=== PATIENT | male | born 1975 | race African-American/Black ===

== ENCOUNTER 2016-07-27 16:54 | Inpatient (IN) | payer OTHER ==
[~2016-07-27 16:54] MED LIST: TAMS5CAP PO
[2016-07-27] MEDS ORDERED: ceFAZolin 2 GM PREMIX 50 ML ONE (17:00)
[2016-07-27 17:10] VITALS: O2SAT 98
[2016-07-27 17:18] LABS: I-STAT POTASSIUM 3.4 MMOL/L (3.5-4.9)
[2016-07-27] MEDS ORDERED: ceFAZolin 2 GM PREMIX 50 ML IV STA (17:25)
[2016-07-27 17:26] LABS: APTT (PATIENT) 23.7 SEC (24.3-30.1); PROTHROMBIN TIME - PATIENT 11.5 SEC (9.8-11.6)
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
[2016-07-27] MEDS ORDERED: LIDOCAINE 1%/EPINEPHrine 1:100,000 SOLN 30 ML VIAL ONE (17:34)
[2016-07-27 17:35] LABS: AUTOMATED NEUTROPHIL # 3.5 TH/MM3 (1.8-7.7); BASOPHIL # 0.1 TH/MM3 (0-0.2); BASOPHIL % 1.2 % (0.0-2.0); EOSINOPHIL # 0.3 TH/MM3 (0-0.4); EOSINOPHIL % 4.1 % (0.0-4.0); HEMATOCRIT 37.5 % (39.0-51.0); HEMO FLAGS DIFF FINAL; LYMPH % 41.3 % (9.0-44.0); LYMPHOCYTE # 3.1 TH/MM3 (1.0-4.8); MEAN CELL VOLUME 84.9 FL (80.0-100.0); MEAN CORPUSCULAR HEMOGLOBIN 29.3 PG (27.0-34.0); MEAN CORPUSCULAR HGB CONC 34.5 % (32.0-36.0); MONO % 7.1 % (0.0-8.0); NEUT % 46.3 % (16.0-70.0); PLATELET COUNT 268 TH/MM3 (150-450); RED BLOOD COUNT 4.41 MIL/MM3 (4.50-5.90); RED CELL DISTRIBUTION WIDTH 14.4 % (11.6-17.2); WHITE BLOOD COUNT 7.6 TH/MM3 (4.0-11.0)
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
[2016-07-27] MEDS ORDERED: SODIUM CHLOR 0.9% 1000 ML INJ 1,000 ML IV SCH (17:51)
[2016-07-27] MEDS ORDERED: NALOXONE HCL 0.4 MG/ML AMP IV PRN (18:00)
[2016-07-27] MEDS ORDERED: IOHEXOL 350 MG/ML 10 ML VIAL (for RAD DIAG) IV ONE (18:00)
[2016-07-27] MEDS ORDERED: Post-op Orders (for Pharmacy) MISC XX ONE (18:00)
[2016-07-27] MEDS ORDERED: ONDANSETRON HCL 4 MG/2 ML VIAL IV PRN (18:00)
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
[2016-07-27 20:00] VITALS: BP 154/87; PULSE 90; RESP 12; TEMP 99; O2SAT 100
[2016-07-27] MEDS: hydrALAZINE HCL 20 MG/ML VIAL IV PUSH SCH (20:02)
[2016-07-27 20:08] VITALS: O2SAT 100
[2016-07-27 20:21] LABS: AMPHETAMINE, URINE NEG (NEG); BARBITURATES, URINE NEG (NEG); COCAINE, URINE NEG (NEG)
[2016-07-27] MEDS: SODIUM CHLORIDE 0.9% FLUSH 5 ML FLUSH IVF SCH (21:00)
[2016-07-27] MEDS: METOPROLOL TARTRATE 5 MG/5 ML VIAL IV PUSH SCH (21:28)
[2016-07-27] MEDS: levETIRAcetam INJ 500 MG in SODIUM CHLORIDE 0.9% INJ 100 ML IV SCH (21:28)
[2016-07-27 22:00] VITALS: BP 144/84; PULSE 106; RESP 13; TEMP 99; O2SAT 96
[2016-07-27] MEDS: ACETAMINOPHEN 325 MG TAB PO PRN (23:45)
[2016-07-28] VITALS (12 sets, daily range): BP systolic 98–138; BP diastolic 53–87; PULSE 70–113; RESP 14–26; TEMP 98.1–98.7; O2SAT 97–99
[2016-07-28] MEDS: hydrALAZINE HCL 20 MG/ML VIAL IV PUSH SCH (02:05)
[2016-07-28] MEDS: METOPROLOL TARTRATE 5 MG/5 ML VIAL IV PUSH SCH ×4 (03:00→20:55)
[2016-07-28 04:51] LABS: AUTOMATED NEUTROPHIL # 10.5 TH/MM3 (1.8-7.7); BASOPHIL % 0.3 % (0.0-2.0); EOSINOPHIL % 0.1 % (0.0-4.0); HEMO FLAGS DIFF FINAL; LYMPHOCYTE # 1.9 TH/MM3 (1.0-4.8); MEAN CELL VOLUME 86.1 FL (80.0-100.0); MEAN CORPUSCULAR HEMOGLOBIN 28.6 PG (27.0-34.0); MEAN CORPUSCULAR HGB CONC 33.3 % (32.0-36.0); MONO % 7.9 % (0.0-8.0); NEUT % 77.7 % (16.0-70.0); PLATELET COUNT 300 TH/MM3 (150-450); RED BLOOD COUNT 4.42 MIL/MM3 (4.50-5.90); RED CELL DISTRIBUTION WIDTH 13.9 % (11.6-17.2); WHITE BLOOD COUNT 13.5 TH/MM3 (4.0-11.0)
[2016-07-28 05:18] LABS: BICARBONATE 25.3 MEQ/L (21.0-32.0); POTASSIUM 3.4 MEQ/L (3.5-5.1)
[2016-07-28 05:20] LABS: INDIRECT BILIRUBIN 0.2 MG/DL (0.0-0.8); TOTAL BILIRUBIN ADULT 0.3 MG/DL (0.2-1.0)
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
[2016-07-28] MEDS: DOCUSATE SODIUM 50 MG/SENNA 8.6 MG TAB PO SCH ×2 (08:11→20:55)
[2016-07-28] MEDS: levETIRAcetam INJ 500 MG in SODIUM CHLORIDE 0.9% INJ 100 ML IV SCH ×2 (08:11→20:55)
[2016-07-28] MEDS: ACETAMINOPHEN 325 MG TAB PO PRN ×2 (08:12→15:54)
[2016-07-28] MEDS: SODIUM CHLORIDE 0.9% FLUSH 5 ML FLUSH IVF SCH ×2 (09:00→20:56)
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
[2016-07-28] MEDS: BACITRACIN TOP OINT 15 GM TUBE TOP SCH ×2 (15:54→20:56)
[2016-07-28] MEDS: PANTOPRAZOLE SODIUM 40 MG VIAL IV SCH (18:00)
[2016-07-28] MEDS ORDERED: EPINEPHrine HCL (1:10,000) 1 MG/10 ML SYRINGE ONE (19:25)
[2016-07-28] MEDS ORDERED: LIDOCAINE HCL 2% 100 MG/5 ML SYRINGE ONE (19:25)
[2016-07-28] MEDS ORDERED: ATROPINE SULFATE 1 MG/10 ML SYRINGE ONE (19:25)
[2016-07-28] MEDS ORDERED: IODIXANOL 320 MG/ML 10 ML VIAL (for Rad CT) IV ONE (19:57)
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
[2016-07-28] MEDS: MAGNESIUM HYDROXIDE SUSP 30 ML CUP PO SCH (20:55)
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
[2016-07-28] MEDS: oxyCODONE/ACETAMINOPHEN 5 MG/325 MG TAB PO PRN (23:16)
[2016-07-29] VITALS (10 sets, daily range): BP systolic 100–137; BP diastolic 58–89; PULSE 61–70; RESP 17–22; TEMP 97.8–98.6; O2SAT 96–98
[2016-07-29] MEDS: METOPROLOL TARTRATE 5 MG/5 ML VIAL IV PUSH SCH ×2 (03:00→09:00)
[2016-07-29] MEDS: oxyCODONE/ACETAMINOPHEN 5 MG/325 MG TAB PO PRN ×4 (03:12→19:58)
[2016-07-29 04:44] LABS: AUTOMATED NEUTROPHIL # 6.1 TH/MM3 (1.8-7.7); BASOPHIL % 0.2 % (0.0-2.0); EOSINOPHIL # 0.2 TH/MM3 (0-0.4); EOSINOPHIL % 2.1 % (0.0-4.0); HEMATOCRIT 38.3 % (39.0-51.0); HEMO FLAGS DIFF FINAL; LYMPH % 27.6 % (9.0-44.0); LYMPHOCYTE # 2.8 TH/MM3 (1.0-4.8); MEAN CELL VOLUME 86.5 FL (80.0-100.0); MEAN CORPUSCULAR HEMOGLOBIN 28.8 PG (27.0-34.0); MEAN CORPUSCULAR HGB CONC 33.3 % (32.0-36.0); MONO % 8.6 % (0.0-8.0); NEUT % 61.5 % (16.0-70.0); PLATELET COUNT 280 TH/MM3 (150-450); RED BLOOD COUNT 4.43 MIL/MM3 (4.50-5.90); RED CELL DISTRIBUTION WIDTH 14.4 % (11.6-17.2)
[2016-07-29 05:18] LABS: ALT (GPT) 28 U/L (12-78); ANION GAP 6 MEQ/L (5-15); AST (GOT) 16 U/L (15-37); BICARBONATE 31.9 MEQ/L (21.0-32.0); BLOOD UREA NITROGEN 15 MG/DL (7-18); CHLORIDE 104 MEQ/L (98-107); GLOMERULAR FILTRATION RATE 65 ML/MIN (>89); MAGNESIUM 2.1 MG/DL (1.5-2.5); POTASSIUM 3.5 MEQ/L (3.5-5.1); SODIUM (NA) 142 MEQ/L (136-145)
[2016-07-29 05:20] LABS: ALKALINE PHOSPHATASE 62 U/L (45-117); TOTAL BILIRUBIN ADULT 0.5 MG/DL (0.2-1.0)
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
[2016-07-29] MEDS: levETIRAcetam INJ 500 MG in SODIUM CHLORIDE 0.9% INJ 100 ML IV SCH ×2 (08:22→21:55)
[2016-07-29] MEDS: DOCUSATE SODIUM 50 MG/SENNA 8.6 MG TAB PO SCH ×2 (08:22→21:54)
[2016-07-29] MEDS: SODIUM CHLORIDE 0.9% FLUSH 5 ML FLUSH IVF SCH ×2 (09:00→21:55)
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
[2016-07-29] MEDS: ACETAMINOPHEN 325 MG TAB PO PRN (18:36)
[2016-07-29] MEDS: PANTOPRAZOLE SODIUM 40 MG VIAL IV SCH (18:57)
[2016-07-29] MEDS: BACITRACIN TOP OINT 15 GM TUBE TOP SCH (21:00)
[2016-07-29] MEDS: MAGNESIUM HYDROXIDE SUSP 30 ML CUP PO SCH (21:54)
--- NOTE | 2016-07-29 22:53 | RADRPT ---
EXAM DATE/TIME: 07/29/2016 22:23 [place] COMPARISON: CTA BRAIN W 3D RECON, July 28, 2016, 19:49. CT BRAIN W & W/O CONTRAST, July 28, 2016, 19:44. INDICATIONS : Head injury, headache, follow up intracranial bleed. IV CONTRAST: 80 cc Omnipaque 350 (iohexol) IV RADIATION DOSE: 56.35 CTDIvol (mGy) MEDICAL HISTORY : Hypertension. SURGICAL HISTORY : None. ENCOUNTER: Subsequent ACUITY: 2 days PAIN SCALE: 7/10 LOCATION: cranial TECHNIQUE: Multiple contiguous axial images were obtained of the head. Using automated exposure control and adj ustment of the mA and/or kV according to patient size, radiation dose was kept as low as reasonably a chievable to obtain optimal diagnostic quality images. FINDINGS: The extra-axial blood along the left margin of the brainstem again noted, unchanged to slightly decre ased. This is approximately 3.5 mm in maximal thickness. No significant mass effect. No midline shift . No no hemorrhage. No mass lesion. No evidence of an acute ischemic event. There is no abnormal enhancement. No perceptible aneurysm. CONCLUSION: Small subarachnoid blood at the base of the brain unchanged to slightly smaller in the interim. No ne w blood. No mass effect or midline shift. Otto De Leon MD on July 29, 2016 at 22:48 Board Certified Radiologist. This report was verified electronically.
[2016-07-30 00:50] VITALS: BP 144/94; PULSE 58; RESP 18; TEMP 97.6; O2SAT 96
[2016-07-30] MEDS: oxyCODONE/ACETAMINOPHEN 5 MG/325 MG TAB PO PRN ×6 (01:14→20:50)
[2016-07-30 05:54] VITALS: BP 142/99; PULSE 60; RESP 18; TEMP 97.6; O2SAT 97
[2016-07-30] MEDS ORDERED: LACTULOSE SYRUP 20 GM/30 ML CUP PO ONE (08:15)
[2016-07-30 08:19] VITALS: BP 124/84; PULSE 60; RESP 18; TEMP 97; O2SAT 97
[2016-07-30 08:22] LABS: BICARBONATE 30.1 MEQ/L (21.0-32.0); POTASSIUM 3.4 MEQ/L (3.5-5.1)
[2016-07-30 08:40] LABS: MEAN CELL VOLUME 87.6 FL (80.0-100.0); MEAN CORPUSCULAR HEMOGLOBIN 28.9 PG (27.0-34.0); PLATELET COUNT 306 TH/MM3 (150-450); RED BLOOD COUNT 4.57 MIL/MM3 (4.50-5.90); REVIEW FLAG FINAL; WHITE BLOOD COUNT 8.4 TH/MM3 (4.0-11.0)
[2016-07-30] MEDS: BACITRACIN TOP OINT 15 GM TUBE TOP SCH ×2 (09:00→20:53)
[2016-07-30] MEDS: DOCUSATE SODIUM 50 MG/SENNA 8.6 MG TAB PO SCH ×2 (09:04→20:52)
[2016-07-30] MEDS: LISINOPRIL 20 MG TAB PO SCH (09:04)
[2016-07-30] MEDS: FAMOTIDINE 20 MG TAB PO SCH ×2 (09:04→20:52)
[2016-07-30] MEDS: levETIRAcetam INJ 500 MG in SODIUM CHLORIDE 0.9% INJ 100 ML IV SCH ×2 (09:05→20:50)
[2016-07-30] MEDS: SODIUM CHLORIDE 0.9% FLUSH 5 ML FLUSH IVF SCH ×2 (09:11→20:50)
[2016-07-30 12:26] VITALS: BP 117/85; PULSE 68; RESP 19; TEMP 97.9; O2SAT 98
[2016-07-30 16:17] VITALS: BP 118/73; PULSE 60; RESP 19; TEMP 97.2; O2SAT 99
--- NOTE | 2016-07-30 16:19 | HHI.PR ---
Subjective Subjective Notes Complains of relentless HUFFMAN Denies N/V Objective Vitals/I&O Vital Signs Date Time Temp Pulse Resp B/P Pulse Ox O2 Delivery O2 Flow Rate FiO2 07/30/16 13:57 19 07/30/16 12:26 97.9 68 117/85 98 07/30/16 09:07 Room Air 07/27/16 20:08 3.00 Labs Laboratory Tests Test 07/30/16 07:23 White Blood Count 8.4 Red Blood Count 4.57 Hemoglobin 13.2 Hematocrit 40.0 Mean Corpuscular Volume 87.6 Mean Corpuscular Hemoglobin 28.9 Mean Corpuscular Hemoglobin 33.0 Concent Red Cell Distribution Width 14.0 Platelet Count 306 Mean Platelet Volume 7.3 Sodium Level 141 Potassium Level 3.4 Chloride Level 103 Carbon Dioxide Level 30.1 Anion Gap 8 Blood Urea Nitrogen 14 Creatinine 1.43 Estimat Glomerular Filtration 66 Rate Random Glucose 95 Calcium Level 8.6 Radiology Last Impressions Head CT 07/29/16 0000 Signed Impressions: Service Date/Time: Friday, July 29, 2016 22:23 - CONCLUSION: Small subarachnoid blood at the base of the brain unchanged to slightly smaller in the interim. No new blood. No mass effect or midline shift. Otto De Leon MD Head CTA 07/28/16 0600 Signed Impressions: Service Date/Time: Thursday, July 28, 2016 19:49 - CONCLUSION: 1. Mild vasospasm. No discrete aneurysm. No focal vessel truncation. Marcos Nance MD Pelvis X-Ray 07/27/161705 Signed Impressions: Service Date/Time: Wednesday, July 27, 2016 16:51 - CONCLUSION: Unremarkable examination of the pelvis. Marcos Nance MD Chest X-Ray 07/27/161705 Signed Impressions: Service Date/Time: Wednesday, July 27, 2016 16:51 - CONCLUSION: No acute disease. Marcos Nance MD Chest CT 07/27/161705 Signed Impressions: Service Date/Time: Wednesday, July 27, 2016 17:17 - CONCLUSION: 1. No acute traumatic injury identified within the thorax. Minimal dependent atelectasis in the lungs. See abdomen CT for findings below diaphragm. Marcos Nance MD Cervical Spine CT 07/27/161705 Signed Impressions: Service Date/Time: Wednesday, July 27, 2016 17:09 - CONCLUSION: 1. No acute findings. Marcos Nance MD Abdomen/Pelvis CT 07/27/16 1706 Signed Impressions: Service Date/Time: Wednesday, July 27, 2016 17:19 - CONCLUSION: 1. No acute traumatic injury identified within the abdomen and pelvis. Mild right-sided hydronephrosis possibly due to reflux. Mild bladder wall thickening. Marcos Nance MD Narrative Exam GENERAL: 40 year old well-nourished, well developed male sitting OOB in chair. SKIN: Warm and dry. ENT: No nasal bleeding or discharge. Mucous membranes pink and moist. NECK: Trachea midline. No JVD. CARDIOVASCULAR: Regular rate and rhythm. RESPIRATORY: No accessory muscle use. Lungs clear to auscultation. Breath sounds equal bilaterally. GASTROINTESTINAL: Abdomen soft, non-tender, nondistended. + BS. MUSCULOSKELETAL: Extremities without cyanosis, or edema. No obvious deformities. NEUROLOGICAL: Awake and alert. Normal speech. A/P Assessment and Plan INJURIES: SAH along the LEFT brainstem Left parietal lac (3 sutures, 16 aide) Aspiration PMHx: HTN Diet: Regular, tolerating Pulm: IS, encouraged patient use. Pain: Tylenol. Percocet. Added IV Morphine for better pain control. Activity: OOB. PT and OT evaluating. Got OOB with minimal assist today. GI: Pepcid Bowel: Angeli-Colace. MOM. No BM yet. Lactulose x1. DVT: SCD's Continue Keppra. No seizure activity noted. NS following. Labs reviewed. 40mEq K Cl ordered for K+ of 3.4. Continue to monitor creatinine. PARAG vs CKD from uncontrolled HTN. Discontinue Nair catheter Plan of care discussed with patient at bedside. The exam, history, and the medical decision-making described in the above note were completed with the assistance of the mid-level provider. I reviewed and agree with the findings presented. I attest that I had a [id number] encounter with the patient on the same day, and personally performed and documented my assessment and findings in the medical record. Joycelyn Baker Jul 30, 2016 16:19 Giorgio Mccallum MD Aug 13, 2016 20:35
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
[2016-07-30] MEDS ORDERED: POTASSIUM CHLORIDE 10 MEQ CONTROLLED RELEASE TAB PO ONE (16:30)
[2016-07-30 20:00] VITALS: BP 136/81; PULSE 66; RESP 17; TEMP 97.9; O2SAT 98
[2016-07-30] MEDS: TAMSULOSIN HCL 0.4 MG CAP PO SCH (20:51)
[2016-07-30] MEDS: MUPIROCIN 2% OINT 1 APPLIC/GM SYR EACH NARE SCH (20:52)
[2016-07-30] MEDS: MAGNESIUM HYDROXIDE SUSP 30 ML CUP PO SCH (20:52)
[2016-07-30] MEDS: MORPHINE SULFATE 4 MG/ML INJ IV PUSH PRN (22:37)
[2016-07-31 00:30] VITALS: BP 135/77; PULSE 68; RESP 18; TEMP 98; O2SAT 98
[2016-07-31] MEDS: oxyCODONE/ACETAMINOPHEN 5 MG/325 MG TAB PO PRN ×4 (02:54→23:47)
[2016-07-31 04:00] VITALS: BP 116/68; PULSE 65; RESP 19; TEMP 97.2; O2SAT 98
[2016-07-31] MEDS: SODIUM CHLORIDE 0.9% FLUSH 5 ML FLUSH IVF PRN (05:56)
[2016-07-31] MEDS: MORPHINE SULFATE 4 MG/ML INJ IV PUSH PRN ×3 (05:56→20:20)
[2016-07-31 08:00] VITALS: BP 119/74; PULSE 71; RESP 18; TEMP 97.6; O2SAT 97
[2016-07-31] MEDS: LISINOPRIL 20 MG TAB PO SCH (09:07)
[2016-07-31] MEDS: levETIRAcetam INJ 500 MG in SODIUM CHLORIDE 0.9% INJ 100 ML IV SCH ×2 (09:07→20:21)
[2016-07-31] MEDS: DOCUSATE SODIUM 50 MG/SENNA 8.6 MG TAB PO SCH ×2 (09:07→20:22)
[2016-07-31] MEDS: SODIUM CHLORIDE 0.9% FLUSH 5 ML FLUSH IVF SCH ×2 (09:07→21:00)
[2016-07-31] MEDS: MUPIROCIN 2% OINT 1 APPLIC/GM SYR EACH NARE SCH ×2 (09:07→20:22)
[2016-07-31] MEDS: FAMOTIDINE 20 MG TAB PO SCH ×2 (09:07→20:22)
[2016-07-31] MEDS: BACITRACIN TOP OINT 15 GM TUBE TOP SCH ×2 (09:08→20:20)
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
[2016-07-31 12:10] VITALS: BP 132/85; PULSE 85; RESP 19; TEMP 97; O2SAT 98
[2016-07-31] MEDS ORDERED: SUMAtriptan SUCCINATE 25 MG TAB PO PRN (12:45)
--- NOTE | 2016-07-31 16:09 | HHI.PR ---
Subjective Subjective Notes Still with complaints of HUFFMAN, relieved by Morphine Complains of photophobia Objective Vitals/I&O Vital Signs Date Time Temp Pulse Resp B/P Pulse Ox O2 Delivery O2 Flow Rate FiO2 07/31/16 14:08 18 07/31/16 12:10 97.0 85 132/85 98 07/30/16 09:07 Room Air 07/27/16 20:08 3.00 Radiology Last Impressions Head CT 07/29/16 0000 Signed Impressions: Service Date/Time: Friday, July 29, 2016 22:23 - CONCLUSION: Small subarachnoid blood at the base of the brain unchanged to slightly smaller in the interim. No new blood. No mass effect or midline shift. Otto De Leon MD Head CTA 07/28/16 0600 Signed Impressions: Service Date/Time: Thursday, July 28, 2016 19:49 - CONCLUSION: 1. Mild vasospasm. No discrete aneurysm. No focal vessel truncation. Marcos Nance MD Pelvis X-Ray 07/27/161705 Signed Impressions: Service Date/Time: Wednesday, July 27, 2016 16:51 - CONCLUSION: Unremarkable examination of the pelvis. Marcos Nance MD Chest X-Ray 07/27/161705 Signed Impressions: Service Date/Time: Wednesday, July 27, 2016 16:51 - CONCLUSION: No acute disease. Marcos Nance MD Chest CT 07/27/161705 Signed Impressions: Service Date/Time: Wednesday, July 27, 2016 17:17 - CONCLUSION: 1. No acute traumatic injury identified within the thorax. Minimal dependent atelectasis in the lungs. See abdomen CT for findings below diaphragm. Marcos Nance MD Cervical Spine CT 07/27/161705 Signed Impressions: Service Date/Time: Wednesday, July 27, 2016 17:09 - CONCLUSION: 1. No acute findings. Marcos Nance MD Abdomen/Pelvis CT 07/27/161705 Signed Impressions: Service Date/Time: Wednesday, July 27, 2016 17:19 - CONCLUSION: 1. No acute traumatic injury identified within the abdomen and pelvis. Mild right-sided hydronephrosis possibly due to reflux. Mild bladder wall thickening. Marcos Nance MD Narrative Exam GENERAL: 40 year old well-nourished, well developed male sitting OOB in chair. SKIN: Warm and dry. ENT: No nasal bleeding or discharge. Mucous membranes pink and moist. NECK: Trachea midline. No JVD. CARDIOVASCULAR: Regular rate and rhythm. RESPIRATORY: No accessory muscle use. Lungs clear to auscultation. Breath sounds equal bilaterally. GASTROINTESTINAL: Abdomen soft, non-tender, nondistended. + BS. MUSCULOSKELETAL: Extremities without cyanosis, or edema. No obvious deformities. NEUROLOGICAL: Awake and alert. Normal speech. A/P Assessment and Plan INJURIES: SAH along the LEFT brainstem Left parietal lac (3 sutures, 16 aide) Aspiration PMHx: HTN Diet: Regular, tolerating Pulm: IS, encouraged patient use. Pain: Tylenol. Percocet. IV Morphine. Added Imitrex for HUFFMAN. Activity: OOB. PT and OT evaluating. Got OOB with minimal assist today. GI: Pepcid Bowel: Angeli-Colace. MOM. LBM 07/31. DVT: SCD's Continue Keppra. No seizure activity noted. NS following. Continue to monitor creatinine. PARAG vs CKD from uncontrolled HTN. Plan of care discussed with patient at bedside. When pain better controlled, patient will be discharged home. Joycelyn Baker Jul 31, 2016 16:09 Joycelyn Baker Jul 31, 2016 16:09
[2016-07-31 16:29] VITALS: BP 117/66; PULSE 77; RESP 17; TEMP 97.4; O2SAT 97
[2016-07-31 20:00] VITALS: BP 127/70; PULSE 65; RESP 19; TEMP 97.7; O2SAT 97
[2016-07-31] MEDS: MAGNESIUM HYDROXIDE SUSP 30 ML CUP PO SCH ×2 (20:20→21:40)
[2016-07-31] MEDS: TAMSULOSIN HCL 0.4 MG CAP PO SCH (20:28)
[2016-08-01] VITALS: BP 128/69; PULSE 69; RESP 18; TEMP 97.1; O2SAT 98
[2016-08-01 05:40] VITALS: BP 130/72; PULSE 66; RESP 20; TEMP 97.9; O2SAT 99
[2016-08-01 08:34] VITALS: BP 121/76; PULSE 82; RESP 20; TEMP 97.2; O2SAT 98
[2016-08-01] MEDS: BACITRACIN TOP OINT 15 GM TUBE TOP SCH ×2 (09:00→21:40)
[2016-08-01] MEDS: LISINOPRIL 20 MG TAB PO SCH (09:13)
[2016-08-01] MEDS: DOCUSATE SODIUM 50 MG/SENNA 8.6 MG TAB PO SCH ×2 (09:13→21:33)
[2016-08-01] MEDS: oxyCODONE/ACETAMINOPHEN 5 MG/325 MG TAB PO PRN ×2 (09:14→16:00)
[2016-08-01] MEDS: MUPIROCIN 2% OINT 1 APPLIC/GM SYR EACH NARE SCH ×2 (09:14→21:32)
[2016-08-01] MEDS: SODIUM CHLORIDE 0.9% FLUSH 5 ML FLUSH IVF SCH ×2 (09:14→21:32)
[2016-08-01] MEDS: FAMOTIDINE 20 MG TAB PO SCH ×2 (09:14→21:32)
[2016-08-01] MEDS: levETIRAcetam INJ 500 MG in SODIUM CHLORIDE 0.9% INJ 100 ML IV SCH ×2 (09:15→21:33)
[2016-08-01 10:06] LABS: ALKALINE PHOSPHATASE 63 U/L (45-117); ALT (GPT) 24 U/L (12-78); ANION GAP 10 MEQ/L (5-15); AST (GOT) 15 U/L (15-37); BICARBONATE 28.4 MEQ/L (21.0-32.0); BLOOD UREA NITROGEN 15 MG/DL (7-18); CHLORIDE 101 MEQ/L (98-107); GLOMERULAR FILTRATION RATE 56 ML/MIN (>89); POTASSIUM 3.7 MEQ/L (3.5-5.1); SODIUM (NA) 139 MEQ/L (136-145); TOTAL BILIRUBIN ADULT 0.4 MG/DL (0.2-1.0)
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
[2016-08-01 12:12] VITALS: BP 133/89; PULSE 85; RESP 20; TEMP 96.8; O2SAT 99
[2016-08-01] MEDS: SODIUM CHLORIDE 0.9% FLUSH 5 ML FLUSH IVF PRN (12:48)
[2016-08-01] MEDS: MORPHINE SULFATE 4 MG/ML INJ IV PUSH PRN ×3 (12:48→21:40)
[2016-08-01] MEDS ORDERED: WALKER WHEELS/F1 MIS (14:22)
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
[2016-08-01 16:21] VITALS: BP 130/68; PULSE 79; RESP 20; TEMP 98; O2SAT 98
[2016-08-01 20:00] VITALS: BP 142/80; PULSE 70; RESP 20; TEMP 98.5; O2SAT 97
[2016-08-01] MEDS: TAMSULOSIN HCL 0.4 MG CAP PO SCH (21:33)
[2016-08-02] MEDS: oxyCODONE/ACETAMINOPHEN 5 MG/325 MG TAB PO PRN ×2 (03:47→13:35)
[2016-08-02 04:00] VITALS: BP 134/73; PULSE 68; RESP 20; TEMP 98.8; O2SAT 98
[2016-08-02 08:00] VITALS: BP 130/78; PULSE 60; RESP 18; TEMP 98.4; O2SAT 99
[2016-08-02] MEDS: MUPIROCIN 2% OINT 1 APPLIC/GM SYR EACH NARE SCH (09:46)
[2016-08-02] MEDS: SODIUM CHLORIDE 0.9% FLUSH 5 ML FLUSH IVF SCH (09:46)
[2016-08-02] MEDS: levETIRAcetam INJ 500 MG in SODIUM CHLORIDE 0.9% INJ 100 ML IV SCH (09:47)
[2016-08-02] MEDS: LISINOPRIL 20 MG TAB PO SCH (09:47)
[2016-08-02] MEDS: FAMOTIDINE 20 MG TAB PO SCH (09:47)
[2016-08-02] MEDS: DOCUSATE SODIUM 50 MG/SENNA 8.6 MG TAB PO SCH (09:47)
[2016-08-02] MEDS: BACITRACIN TOP OINT 15 GM TUBE TOP SCH (09:49)
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
[2016-08-02 12:00] VITALS: BP 133/82; PULSE 58; RESP 18; TEMP 97.4; O2SAT 100
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
[2016-08-02] MEDS ORDERED: OXYC1TAB63 PO (13:56)
[2016-08-02] MEDS ORDERED: MILKSUS PO (14:02)
[2016-08-02] MEDS ORDERED: SENN1TAB PO (14:02)
[2016-08-02] MEDS ORDERED: IMIT25TA PO (14:02)
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
[2016-09-12] MEDS ORDERED: NIFE30TA61 PO (09:00)
[2016-09-12] MEDS ORDERED: TAMS5CAP PO (09:22)
[2016-09-12] MEDS ORDERED: PERC5TAB12 PO (09:26)
== END 2016-08-02 17:03 | disposition home health service (06) | DRG 83 ==
LOC: NEPI 16:54 → EDBD 17:46 → MERGE 17:46 → NEDA 17:46 → N03A 18:11 → N05A 07-29 15:15
PROVIDERS: ADMIT Surgery; ATTEND Surgery
PROC: 0HQ0XZZ Repair Scalp Skin, External Approach (ICD-10-PCS; principal; 2016-07-27)
DX: S06.6X9A Traumatic subarachnoid hemorrhage with loss of consciousness of unspecified duration, initial encounter (principal); N13.30 Unspecified hydronephrosis; I10 Essential (primary) hypertension; S01.01XA Laceration without foreign body of scalp, initial encounter; J98.11 Atelectasis; R00.0 Tachycardia, unspecified; R32 Unspecified urinary incontinence; R40.2422 Glasgow coma scale score 9-12, at arrival to emergency department; V86.99XA Unspecified occupant of other special all-terrain or other off-road motor vehicle injured in nontraffic accident, initial encounter
CPT/HCPCS: 12015; 70450; 70470; 70496; 71010; 71260; 72125; 72170; 74177; 80048; 80053; 80076; 80307; 80320; 82435; 82565; 82947; 83735; 84100; 84132; 84295; 84520; 85025; 85027; 85610; 85730; 86850; 86900; 86901; 87641; 94150; 96374; C9113; J0171; J0360; J0461; J0690; J1953; J2270; J7030; Q9967

== ENCOUNTER 2016-08-09 18:03 | Emergency (ER) | payer OTHER ==
[~2016-08-09] VITALS: Ht 180.3 cm; Wt 100.0 kg
[~2016-08-09 18:03] MED LIST changes: +IMIT25TA PO; +MILKSUS PO; +OXYC1TAB63 PO; +SENN1TAB PO; +WALKER WHEELS/F1 MIS
[2016-08-09 18:05] VITALS: BP 160/93; PULSE 82; RESP 20; TEMP 97.7; O2SAT 97
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
[2016-08-09] MEDS ORDERED: ACETAMINOPHEN 325 MG TAB PO ONE (18:30)
[2016-09-12] MEDS ORDERED: NIFE30TA61 PO (09:00)
[2016-09-12] MEDS ORDERED: TAMS5CAP PO (09:22)
[2016-09-12] MEDS ORDERED: PERC5TAB12 PO (09:26)
== END 2016-08-09 18:45 | disposition home or self-care (01) ==
LOC: NEPB 18:03
DX: S01.01XD Laceration without foreign body of scalp, subsequent encounter (principal); I10 Essential (primary) hypertension; Z48.02 Encounter for removal of sutures; Z86.14 Personal history of Methicillin resistant Staphylococcus aureus infection; V86.99XD Unspecified occupant of other special all-terrain or other off-road motor vehicle injured in nontraffic accident, subsequent encounter
CPT/HCPCS: 99282

== ENCOUNTER → 2017-02-24 | Day surgery (SDC) | payer OTHER ==
[~2017-02-24] VITALS: Ht 177.8 cm; Wt 103.8 kg
[~2017-02-24] MED LIST changes: +BLOOD PRESSURE PILL; +CEPH-459 PO; +CHLORHEXIDINE GLUCONATE 2 % 1 PACK (2 CLOTHS) TOPICAL PRN; +CIPR-9 PO; +DO NOT ADM ANY ANTICOAGULANT DRUGS PRN; -IMIT25TA PO; +INSULIN HUMAN REGULAR 1,000 UNITS/10 ML VIAL SQ PRN; +LACTATED RINGER'S 1000 ML IV PRN; +METOPROLOL TARTRATE 25 MG TAB PO PRN; +MIDAZOLAM HCL 2 MG/2 ML VIAL IV ONE; +ONDANSETRON HCL 4 MG/2 ML VIAL IV PUSH ONE; +ONDANSETRON HCL 4 MG/2 ML VIAL IV PUSH PRN; -OXYC1TAB63 PO; +PERC5TAB12 PO; +PHENYLEPH/NS 1000 MCG/10 ML SYR IV ONE; +POVIDONE IODINE 5% (ANTISEPSIS KIT) 4 APPLICATIONS EACH NARE PRN; +PROPOFOL 200 MG/20 ML AMP IV ONE; -SENN1TAB PO; +SODIUM CHLORID 0.9% 500 ML IV PRN; +VESI5TAB PO; -WALKER WHEELS/F1 MIS; +ceFAZolin 2 GM PREMIX 50 ML IV SCH
[2017-02-24 13:50] LABS: AUTOMATED NEUTROPHIL # 3.2 TH/MM3 (1.8-7.7); BASOPHIL % 0.7 % (0.0-2.0); EOSINOPHIL # 0.4 TH/MM3 (0-0.4); EOSINOPHIL % 6.1 % (0.0-4.0); HEMATOCRIT 37.8 % (39.0-51.0); HEMO FLAGS DIFF FINAL; LYMPH % 36.9 % (9.0-44.0); LYMPHOCYTE # 2.4 TH/MM3 (1.0-4.8); MEAN CELL VOLUME 85.8 FL (80.0-100.0); MEAN CORPUSCULAR HEMOGLOBIN 29.3 PG (27.0-34.0); MEAN CORPUSCULAR HGB CONC 34.2 % (32.0-36.0); NEUT % 50.3 % (16.0-70.0); PLATELET COUNT 243 TH/MM3 (150-450); RED CELL DISTRIBUTION WIDTH 14.4 % (11.6-17.2); WHITE BLOOD COUNT 6.4 TH/MM3 (4.0-11.0)
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
[2017-02-24] MEDS: oxyCODONE/ACETAMINOPHEN 5 MG/325 MG TAB PO PRN (16:17)
[2017-02-24 17:15] VITALS: BP 124/88; PULSE 78; RESP 18; TEMP 98.6; O2SAT 100
== END | disposition home or self-care (01) ==
LOC: HSDC 12:05
PROVIDERS: ATTEND Urology
DX: N31.9 Neuromuscular dysfunction of bladder, unspecified (principal); R33.9 Retention of urine, unspecified; I10 Essential (primary) hypertension; Z01.818 Encounter for other preprocedural examination
CPT/HCPCS: 00800; 51102; 85025; J2250; J2370; J2405; J3010; J7120